=== PATIENT | female | born 1985 | race Caucasian/White ===

== ENCOUNTER 2021-04-05 11:27 | Observation (INO) ==
[2021-04-05] MEDS ORDERED: Morphine Sulfate 2 MG/ML SYRINGE IVP ONE (14:31)
[2021-04-05] MEDS ORDERED: Naloxone 0.4 MG/ML INJ IVP PRN (14:49)
[2021-04-05] MEDS ORDERED: Melatonin 3 MG TABLET PO PRN (14:49)
[2021-04-05] MEDS ORDERED: Ondansetron 4 MG/2 ML VIAL IVP PRN ×2 (14:49→22:27)
[2021-04-05] MEDS ORDERED: Ringers Solution, Lactated 1,000 ML IVC SCH (15:00)
[2021-04-05] MEDS ORDERED: *HR* Dextrose 50 % in Water (Vial) 50 ML VIAL IVP PRN (16:24)
[2021-04-05] MEDS ORDERED: D5% in Water 1,000 ML IVC PRN (16:24)
[2021-04-05] MEDS ORDERED: Dextrose Gel 15 GM/37.5 ML TUBE PO PRN ×2 (16:24)
[2021-04-05] MEDS ORDERED: Lactobacillus 1 EACH CAP.SPRINK PO SCH (21:00)
[2021-04-05] MEDS ORDERED: *HR* OxyCODONE Immed Rel 5 MG TABLET PO PRN (22:27)
[2021-04-05] MEDS ORDERED: *HR* Midazolam HCl 2 MG/2 ML VIAL ONE (22:34)
[2021-04-05] MEDS ORDERED: *HR* Propofol 200 MG/20 ML VIAL IVP ONE (22:34)
[2021-04-05] MEDS ORDERED: *HR* FentaNYL (PF) 100 MCG/2 ML VIAL ONE (22:34)
[2021-04-05] MEDS ORDERED: Lidocaine -MPF 2% 2 ML VIAL ONE (22:35)
[2021-04-05] MEDS ORDERED: *HR* Rocuronium Bromide 50 MG/5 ML VIAL ONE (22:35)
[2021-04-05] MEDS ORDERED: Ondansetron 4 MG/2 ML VIAL ONE (22:35)
[2021-04-05] MEDS ORDERED: Ketorolac 30 MG/ML VIAL ONE (23:10)
[2021-04-05] MEDS ORDERED: *HR* Belladonna Alkaloids/Opium 60 MG RECTAL SUPPOSITORY RC ONE (23:14)
[2021-04-05] MEDS ORDERED: Sugammadex Sodium 200 MG/2 ML VIAL IV ONE (23:57)
[2021-04-06] MEDS ORDERED: Ringers Solution, Lactated 1,000 ML IVC SCH (01:02)
[2021-04-06] MEDS ORDERED: *HR* Dextrose 50 % in Water (Vial) 50 ML VIAL IVP PRN (01:02)
[2021-04-06] MEDS ORDERED: Naloxone 0.4 MG/ML INJ IVP PRN ×2 (01:02)
[2021-04-06] MEDS ORDERED: Melatonin 3 MG TABLET PO PRN (01:02)
[2021-04-06] MEDS ORDERED: Dextrose Gel 15 GM/37.5 ML TUBE PO PRN ×2 (01:02)
[2021-04-06] MEDS ORDERED: D5% in Water 1,000 ML IVC PRN (01:02)
[2021-04-06] MEDS ORDERED: levoFLOXacin 500 MG TABLET PO ONE (01:02)
[2021-04-06] MEDS ORDERED: Ondansetron 4 MG/2 ML VIAL IVP PRN (01:02)
[2021-04-06] MEDS ORDERED: Prochlorperazine 10 MG/2 ML VIAL IVP PRN (05:34)
[2021-04-06 05:54] LABS: Basophils % 0.1 %; Hemoglobin 12.3 g/dL (11.5-15.4); Immature Granulocytes % 0.5 % (0-4); Lymphocytes % 9.8 %; Mean Corpuscular HGB Conc 31.5 g/dL (31.6-35.5); Mean Corpuscular Hemoglobin 27.6 pg (28.0-33.3); Mean Corpuscular Volume 87.4 fL (83.0-100.0); Mean Platelet Volume 9.7 fL (9.4-12.4); Monocytes # 0.1 K/mcL (0.0-1.3); Monocytes % 1.2 %; Platelet Count 309 K/mcL (140-400); Red Blood Count 4.46 M/mcL (3.82-4.97); Red Cell Distribution Width 13.1 % (11.5-14.5); Segmented Neutrophils % 88.4 %; White Blood Count 10.2 K/mcL (4.3-11.1)
[2021-04-06 06:18] LABS: BUN/Creatinine Ratio 15 (6-26); Blood Urea Nitrogen 14 mg/dL (6-20); Calcium 8.6 mg/dL (8.6-10.3); Carbon Dioxide 24 mEq/L (23-29); Chloride 108 mEq/L (98-107); Glucose 153 mg/dL (70-105); Magnesium 2.1 mg/dL (1.6-2.6); Osmolality,Calculated 290 (280-300); Phosphorous 2.6 mg/dL (2.7-4.5); Sodium 138 mEq/L (136-145); eGFR For African Americans > 60 (> 60); eGFR For Non-African Americans > 60 (> 60)
[2021-04-06 06:40] VITALS: BP 112/74; PULSE 66; TEMP 97.7; O2SAT 96
[2021-04-06] MEDS ORDERED: Lactobacillus 1 EACH CAP.SPRINK PO SCH (09:00)
[2021-04-09 07:16] LABS: Calculi Mass 160 mg
== END 2021-04-06 10:41 | disposition home or self-care (01) ==
LOC: 3BNU → SUATTDRO 13:38
PROVIDERS: ADMIT Internal Medicine; ATTEND Internal Medicine